=== PATIENT | female | born 1980 | race Two or more races ===

== ENCOUNTER 2024-12-11 14:34 | Emergency (ER) | payer MEDICAID, SELFPAY ==
[2024-12-11 14:35] VITALS: BMI 31.9
[2024-12-11 15:03] VITALS: BP 125/76; PULSE 64; RESP 18; TEMP 36.9; O2SAT 97
--- NOTE | 2024-12-11 15:08 | XR_ITS ---
Examination: CT brain head without contrast. 2-D sagittal coronal reconstructions Date and time of exam:December 11, 2024 1710 hours INDICATIONS: Onset dizziness lightheadedness beginning 2 weeks ago CTDI: vol (mGy):50.8 DLP: (mGycm):1015 Technique: Multiple CT axial sections of the brain have been obtained, 5 mm slice thickness. Contrast has not been administered. 2-D sagittal, coronal reconstructions have been obtained Low dose protocols were performed. One or more of the following dose reduction techniques were used; automated exposure control, adjustment of the mA and/or KV according to patient size, use of iterative reconstruction technique. Findings: No significant ventricular enlargement. Total opacification left maxillary antrum Intra-axial or extra-axial hemorrhage density is not seen. No mass effect or midline shift Basal cisterns are not remarkable. Fourth ventricle is midline. Cranial vault intact. Impression: Negative for acute hemorrhage, mass effect or midline shift If symptoms persist, consider brain MRI follow-up
--- NOTE | 2024-12-11 15:08 | EKG_ITS ---
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
--- NOTE | 2024-12-11 15:10 | PD.EDRME ---
Rapid Medical Screening Exam RME Arrival date/time: 12/11/24 14:34 44-year-old female with no known medical history presents to the emergency room with a chief complaint of dizziness, headache, right-sided facial numbness x 2 days I have greeted and performed a focused initial assessment of this patient. A comprehensive ED assessment and evaluation of the patient, analysis of all test results, and completion of the medical decision making process will be conducted by additional ED providers. Chief Complaint: General Adult/Misc Complain Vital signs: Vital Signs Temperature 98.5 F 12/11/24 15:03 Pulse Rate 64 12/11/24 15:03 Respiratory Rate 18 12/11/24 15:03 Blood Pressure 125/76 12/11/24 15:03 Pulse Oximetry (%) 97 12/11/24 15:03 Oxygen Delivery Method Room Air 12/11/24 15:03 Vital signs reviewed by provider: Yes
[2024-12-11 15:39] LABS: Basophils # (Auto) 0.1 Thou/mm3 (0.0-0.2); Basophils % (Auto) 1 % (0-2.5); Eosinophils # (Auto) 0.2 Thou/mm3 (0.0-0.5); Eosinophils % (Auto) 1 % (0-10); Hemoglobin 13.3 g/dL (12.0-16.0); Immature Granulocytes % (Auto) 0 % (0-0); Immature Granulocytes Auto 0.03 Thou/mm3 (0.00-0.00); Lymphocytes # (Auto) 2.6 Thou/mm3 (1.0-4.8); Lymphocytes % (Auto) 22 % (10-50); Mean Corpuscular HGB Conc 34.1 g/dl (31.0-37.0); Mean Corpuscular Hemoglobin 29.6 pg (25.0-35.0); Mean Corpuscular Volume 87 fL (80-100); Monocytes # (Auto) 0.6 Thou/mm3 (0.0-0.8); Monocytes % (Auto) 5 % (0-12); Neutrophils # (Auto) 8.5 Thou/mm3 (1.8-7.7); Neutrophils % (Auto) 71 % (37-80); Nucleated Red Blood Cell % 0 /100 WBC (0); Platelet Count 231 Thou/mm3 (140-440); RDW Standard Deviation 41.4 fL (36.4-46.3)
[2024-12-11 15:55] LABS: Collection Type, Urine Clean Catch
[2024-12-11 15:56] LABS: B-Type Natriuretic Peptide < 20 pg/mL (0-100)
[2024-12-11 15:58] LABS: Alanine Aminotransferase 57 U/L (10-49); Albumin, Serum 4.7 gm/dL (3.5-5.0); Albumin/Globulin Ratio 1.6 (1.2-2.2); Alkaline Phosphatase 58 U/L (46-116); Anion Gap 10 (7-16); BUN/Creatinine Ratio 18 Ratio (12-20); Bilirubin,Total 0.7 mg/dL (0.3-1.2); Blood Urea Nitrogen 14 mg/dL (9-23); Calcium 9.5 mg/dL (8.3-10.6); Calcium (Corrected) 9.5 mg/dL (8.5-10.1); Carbon Dioxide 30.4 mMol/L (20.0-31.0); Chloride 99 mMol/L (98-107); Creatinine (Component) 0.8 mg/dL (0.6-1.3); Estimated Creatinine Clearance 99.8 mL/min (>60); Globulin 2.9 gm/dL (2.3-3.5); Glucose 79 mg/dL (74-106); Osmolality,Calculated 277 (275-295); Potassium 4.7 mMol/L (3.4-5.1); Sodium 139 mMol/L (136-145); Total Protein 7.6 gm/dL (5.7-8.2); Troponin I < 0.002 ng/mL (0.0-0.045); eGFR > 60 See Note
[2024-12-11 16:22] LABS: Bacteria,Urine 1+; Bilirubin,Urine Negative (Negative); Blood,Urine Negative (Negative); Color,Urine Yellow (Lt Yel-Yel); Glucose, Urine Negative (Negative); Ketones,Urine Negative (Negative); Leukocyte Esterase,Urine Positive (Negative); Nitrite,Urine Negative (Negative); Protein,Urine 1+ (Neg - Trace); RBC,Urine 11 /hpf (0-3); Specific Gravity,Urine 1.028 (1.001-1.035); Squamous Epithelial Cell,Urine 40 /hpf (0-5); Urobilinogen,Urine Negative mg/dL (0.0-1.0); WBC,Urine 11 /hpf (0-5)
[2024-12-11 16:26] LABS: Clarity,Urine Hazy (Clear/Hazy)
[2024-12-11] MEDS: MECLIZINE HCL 25 MG TABLET PO (16:26)
--- NOTE | 2024-12-11 18:52 | PD.EDHA ---
ED Headache RME/HPI General Chief Complaint: General Adult/Misc Complain Stated Complaint: UNBALANCED/ WEAK Time Seen by Provider: 12/11/24 18:25 Arrival date/time: 12/11/24 14:34 RME / HPI RME / HPI Narrative: 12/11/24 14:34 44-year-old female with no known medical history presents to the emergency room with a chief complaint of dizziness, headache, right-sided facial numbness x 2 days I have greeted and performed a focused initial assessment of this patient. A comprehensive ED assessment and evaluation of the patient, analysis of all test results, and completion of the medical decision making process will be conducted by additional ED providers. This section includes all my notes and documentations, including HPI, PE, and ED course. Morales Reeves MD HPI: 44 y/o female presents to ED c/o head pressure, eye twitches, tongue numbness and vomiting and photophobia and phonophobia for about a week. Patient has been experiencing symptoms for the last week, but have become worse over the last 3 days. Patient was seen by PCP and told she had a migraine, but was advised to come to ED to R/O stroke. No other concerns. ROS: All negative except as documented in HPI. Physical Exam: General: Alert and oriented. No acute distress. Eyes: Conjunctivae and lids clear. EOMI. PERRL. ENT: No nasal congestion. Pharynx normal. Tympanic membrane normal bilaterally. Neck: Supple. No carotid bruit. No JVD. Heart: RRR. Lungs: No respiratory distress. Good air movement. No rhonchi, wheezing, rales. Abdomen: Soft and nontender. Skin: Warm and dry. Neuro: Alert and oriented X 3. Cranial Nerves II-XII grossly intact. No peripheral motor deficits. I reviewed all diagnostic test results: My interpretation of the EKG is: Sinus rhythm with no acute ST?T changes. My review of the Head CT report is NAD. Blood tests and urine tests unremarkable. At this point, diagnoses include: Migraine headache Recommended outpatient management. Based on my best medical judgment, made decision no further evaluation or treatment indicated at this time. Patient understands and agrees to the discharge instructions customized and printed, see below. Discharge Instructions from Dr. Reeves: --After evaluation, your symptoms are due to migraine headache.? Fortunately, there is no life-threatening condition.? Such as stroke or brain tumor. --When you get home, try to get some rest in the dark.? This can be the best treatment for migraine headache. --Try to eat regular nutritious meals, maintain good hydration, decrease stress, and get regular physical exercise.? Increase oral fluid and maintain clear urine.? If dark or yellow, increase oral fluid. --Take Zofran for nausea.? With migraines, controlling your nausea as soon as possible can help. --Take Imitrex as needed.? This works better if you take it at the onset of a migraine headache. Tylenol with codeine for severe pain. --See a private doctor of your choice on 12/14/2024 for recheck and further care. Ask to consider a referral to see a neurologist and MRI brain imaging. --Seek immediate medical care with worsening or with any concerns.? Morales Reeves MD Related Data Previous Rx's ?Medication ?Instructions ?Recorded sulfamethoxazole 800 1 tab PO BID #14 tabs 11/13/20 mg-trimethoprim 160 mg tablet (Bactrim DS) acetaminophen 300 mg-codeine 30 mg 2 tab PO Q8H PRN pain #20 tabs 12/11/24 tablet ondansetron 4 mg disintegrating 4 mg PO TID PRN nausea and 12/11/24 tablet vomiting 30 days #10 tabs sumatriptan succinate 25 mg tablet 25 mg PO Q2H PRN migraine headache 12/11/24 (Imitrex) #10 tabs Allergies Allergy/AdvReac Type Severity Reaction Status Date / Time No Known Allergies Allergy Verified 12/11/24 14:39 Past Medical History Past Medical History GASTROINTESTINAL: Positive Gastrointestinal Disorders and Gall Bladder Disease GENITOURINARY: Positive Genitourinary Disorders (right nephrostomy tube placed 10/28) and Kidney Stones REPRODUCTIVE: Positive Previous Pregnancies OTHER HISTORY: Positive Chicken Pox Family History FAMILY HISTORY: Positive Family Surgery Surgical History SURGICAL: Positive Abdominal Surgery ED Exam Narrative Physical exam: Refer to HPI above Course Quality Measures none Orders Category Date Time Status EKG (ED ONLY) *Do not use* NOW Care 12/11/24 15:[address] head/brain wo con Stat Exams 12/11/24 15:08 Completed EKG (ED Only) Stat Exams 12/11/24 15:08 Draft BNP [B-Type Natriuretic Peptide] Stat Lab 12/11/24 15:18 Completed CBC Stat Lab 12/11/24 15:18 Completed Comprehensive Metabolic Panel Stat Lab 12/11/24 15:18 Completed Troponin I Stat Lab 12/11/24 15:18 Completed Urinalysis Stat Lab 12/11/24 15:49 Completed Urine Culture Stat Lab 12/11/24 15:49 Received Meclizine HCl [Antivert] Med 12/11/24 15:08 Discontinued 25 mg PO X1 ONE Vital Signs Vital signs: Vital Signs Temperature 98.5 F 12/11/24 15:03 Pulse Rate 64 12/11/24 15:03 Respiratory Rate 18 12/11/24 15:03 Blood Pressure 125/76 12/11/24 15:03 Pulse Oximetry (%) 97 12/11/24 15:03 Oxygen Delivery Method Room Air 12/11/24 15:03 Headache MDM Narrative MDM Narrative:: Scribe Attestation: Ivana Ray am scribing for and in the presence of Dr. Reeves. Provider Notation: Although this document has been carefully reviewed, there may still be some phonetic and other typographical errors.? These errors are purely grammatical due to imperfections in the software program and should not be construed in any way to? compromise the substance of the patient's medical care during this visit. 44 y/o female presents to ED c/o worsening head pressure, eye twitches, tongue numbness and vomiting x 3 days. Patient has been experiencing symptoms for the last week, but have become worse over the last 3 days. Patient was seen by PCP and told she had a migraine, but was advised to come to ED to R/O stroke. No other concerns. Patient data External records reviewed:: [facility] previous records (No recent ED records available for review.) Clinical information provided by:: patient Social determinants that could affect healthcare access:: none Patient has the following chronic illnesses:: Gall Bladder Disease, Kidney Stones How is presenting disease/condition affected by chronic disease/condition?: uneffected by Evaluation data The following diagnostics were reviewed and interpreted by me:: lab results, radiology exam(s) and EKG tracing(s) Lab and/or radiology exams considered but not ordered:: None Interpretation Summary: I reviewed all diagnostic test results: My interpretation of the EKG is: Sinus rhythm with no acute ST?T changes. My review of the Head CT report is NAD. Blood tests and urine tests unremarkable. Medications / Prescriptions Medications or Prescriptions considered but not ordered:: None Medication administrations:: Medication Administration History Discontinued Medications Meclizine HCl (Meclizine Hcl 25 Mg Tablet) 25 mg PO X1 ONE Stop: 12/11/24 15:09 Last Admin: 12/11/24 16:26 Dose: 25 mg Documented By: JENNIFER No treatment from me. Consultations Consultation(s) initiated? (list below): No Diagnosis Differential diagnosis headache: migraine, tension headache, subarachnoid hemorrhage, headache, meningitis, sinusitis and other (CVA, TIA) Most likely diagnosis given after review of the tests above:: Migraine headache Admission Indicated Admission indicated?: not indicated Explain why admission is indicated or not indicated:: With no serious illness, there was no indication for admission. Admission Request Was there a request for admission?: No Disposition Plan Disposition Plan: Discharge Discharge Attestation Discharge Attestation: The patient and all family members were given an opportunity to ask questions and understood the discharge instructions. Discharge instructions specifically effects, indications for sooner follow up or return to the emergency department, and the expected course of current diagnosis. Patient condition: Stable Discharge Plan Plan Patient Disposition: HOME (Self Care) Prescriptions/Referrals Prescriptions/Med Rec: New sumatriptan succinate [Imitrex] 25 mg tablet 25 mg PO Q2H PRN (Reason: migraine headache) Qty: 10 0RF Rx Instructions: do not exceed 8 doses per 24 hrs acetaminophen-codeine 300-30 mg tablet 2 tab PO Q8H MDD 6 PRN (Reason: pain) Qty: 20 0RF ondansetron 4 mg tablet,disintegrating 4 mg PO TID PRN (Reason: nausea and vomiting) 30 Days Qty: 10 0RF No Action sulfamethoxazole-trimethoprim [Bactrim DS] 800-160 mg tablet 1 tab PO BID Qty: 14 0RF Referrals: No Primary/Family,Physician [Primary Care Provider] - In 1 week Problem List Clinical Impression: Migraine headache Patient/Caregiver Discharge Instructions Discharge Activity: activity as tolerated Education Materials: ED Headache, Migraine, Classic Additional Instructions: Discharge Instructions from Dr. Reeves: --After evaluation, your symptoms are due to migraine headache.? Fortunately, there is no life-threatening condition.? Such as stroke or brain tumor. --When you get home, try to get some rest in the dark.? This can be the best treatment for migraine headache. --Try to eat regular nutritious meals, maintain good hydration, decrease stress, and get regular physical exercise.? Increase oral fluid and maintain clear urine.? If dark or yellow, increase oral fluid. --Take Zofran for nausea.? With migraines, controlling your nausea as soon as possible can help. --Take Imitrex as needed.? This works better if you take it at the onset of a migraine headache. Tylenol with codeine for severe pain. --See a private doctor of your choice on 12/14/2024 for recheck and further care. Ask to consider a referral to see a neurologist and MRI brain imaging. --Seek immediate medical care with worsening or with any concerns.? Instrucciones de veto del Dr. Reeves: --Despu?s de la evaluaci?n, pedro s?ntomas se deben a armand migra?a. Afortunadamente, no se trata de armand afecci?n potencialmente mortal, brionna un derrame cerebral o un tumor cerebral. --Al llegar a casa, intente descansar un poco en la oscuridad. Melody puede ser el mejor tratamiento para la migra?a. --Intente comer alimentos nutritivos con regularidad, mantenerse katelin hidratado, reducir el estr?s y hacer ejercicio f?sico con regularidad. Aumente la ingesta de l?quidos y mantenga la orina tatianna. Si la orina es oscura o amarilla, aumente la ingesta de l?quidos. --[place] Zofran para las n?useas. En luna de migra?as, controlar las n?useas lo antes posible puede ser ?til. --[place] Imitrex seg?n sea necesario. Es m?s efectivo si lo solange al inicio de la migra?a. --Tylenol con code?na para el dolor intenso. --Consulte con un m?dico privado de dela cruz elecci?n el 03/13/2025 para armand nueva revisi?n y atenci?n adicional. Pida que se considere armand derivaci?n para marlene a un neur?logo y hacerse armand resonancia magn?marycarmen cerebral. --Busque atenci?n m?dica inmediata si presenta empeoramiento o cualquier inquietud. Print Language: Hebrew Stand Alone Forms: Rosaura Award Info., Work/School Release, Patient Portal Info Letter
== END 2024-12-11 19:15 | disposition home or self-care (01) ==
PROVIDERS: Nurse Practitioner Family; Emergency Provider Emergency Medicine
DX: G43.909 Migraine, unspecified, not intractable, without status migrainosus (principal); I44.0 Atrioventricular block, first degree
CPT/HCPCS: 36415; 70450; 80053; 81001; 83880; 84484; 85025; 87086; 93005; 99284; A9270